=== PATIENT | male | born 1990 | race Two or more races ===

== ENCOUNTER 2019-11-26 01:51 | Inpatient (IN) | payer MEDICAID ==
[~2019-11-26] VITALS: Ht 177.8 cm; Wt 89.2 kg
--- NOTE | 2019-11-26 01:58 | NUR ---
PT BIB [facility] FROM [facility] FOR 2 WITNESSED SYNCOPAL EPISODES AND SEPSIS WORKUP. PT REPORTS TWO SYNCOPAL EPISODES THAT WOKE HIM UP AFTER. PT DENIES REPORTS 4/10 [place] AT THIS TIME, PT HAS SMALL HEMATOMA ON BACK OF HEAD, GROSS NEURO INTACT. STATES RECENTLY BEEN DIZZY UPON GETTING UP. PT REPORTS BEING A 12 PACK A DAY DRINKER. PT DENIES ABDOMINAL PAIN, DENIES BEING AROUND ANYONE WHO HAS BEEN SICK AT THIS TIME. PT GIVEN TOTAL OF 2L NS, 2G VANCO, 3.325 ZOSYN, 4 MG ZOFRAN AND 175 MCG [employer]M [employer]. PT RESTING ON [facility] PT PLACED ON SPO2/BP/ECG MONITORING . PT SINUS TACH ON MONITOR IN THE 110S-120S.
[2019-11-26] MEDS ORDERED: SERT25TA PO (02:09)
[2019-11-26] MEDS ORDERED: LISI2.5T PO (02:11)
[2019-11-26] MEDS ORDERED: LISI-167 PO (02:11)
--- NOTE | 2019-11-26 02:12 | NUR ---
CALLED FOR MEDICATION RECONCILLIATION. PT STATES " I ALSO TAKE SOMETHING FOR GERD BUT WE CANT FIND IT TO TELL YOU THE NAME. ITS A SMALL SQUARE PILL". LAW OLE[employer] AT FOR EVAL AND POC. WCTM.
[2019-11-26] MEDS ORDERED: SODIUM CHLORIDE 0.9% 1,000ML IVBOLUS ONE (02:30)
[2019-11-26 02:38] LABS: MEAN CORPUSCULAR HEMOGLOBIN 33.4 pg (27.5-34.5); MEAN CORPUSCULAR HGB CONC 32.8 g/dL (33.2-36.2); MEAN PLATELET VOLUME 9.1 fL (7.4-10.4); PLATELET COUNT 212 x10^3/uL (130-400); RED BLOOD COUNT 4.08 x10^6/uL (4.38-5.82); RED CELL DISTRIBUTION WIDTH 15.8 % (9.4-14.8)
[2019-11-26 02:49] LABS: ALANINE AMINOTRANSFERASE 101 U/L (12-78); ALBUMIN 3.1 g/dL (3.4-5.0); ANION GAP 7 mmol/L (5-15); CALCIUM 7.7 mg/dL (8.5-10.1); CHLORIDE 106 mmol/L (98-107); CREATININE 1.45 mg/dL (0.7-1.3)
[2019-11-26 02:51] LABS: ALKALINE PHOSPHATASE 148 U/L (45-117); BILIRUBIN,TOTAL 0.8 mg/dL (0.2-1.0); TOTAL PROTEIN 7.1 g/dL (6.4-8.2)
[2019-11-26 03:01] LABS: BASOPHILS # (AUTO) 0.03 x10^3/uL (0-0.1); BASOPHILS % (AUTO) 0 % (0-1); EOSINOPHILS # (AUTO) 0.26 x10^3/uL (0-0.4); EOSINOPHILS % (AUTO) 1 % (1-7); LYMPHOCYTES # (AUTO) 3.84 x10^3/uL (1-3.4); LYMPHOCYTES % (AUTO) 21 % (22-44); MD SCAN; MONOCYTES # (AUTO) 0.45 x10^3/uL (0.2-0.8); MONOCYTES % (AUTO) 3 % (2-9); NEUTROPHILS # (AUTO) 13.66 x10^3/uL (1.8-6.8); NEUTROPHILS % (AUTO) 75 % (42-75)
[2019-11-26 03:17] LABS: MICROSCOPIC NOT IND
--- NOTE | 2019-11-26 03:20 | NUR ---
late entry d/t pt care: pt ambulated to and from restroom with a smooth and steady gait, nad, lights dimmed for comfort. pt to be admitted. carol.
[2019-11-26] MEDS ORDERED: ONDANSETRON 2MG/ML, 2ML IVPush PRN (04:00)
[2019-11-26] MEDS ORDERED: PROMETHAZINE 25 MG/ML, 1ML IM PRN (04:00)
[2019-11-26] MEDS ORDERED: morphine SULFATE 10 MG/ML, 1ML IVPush PRN (04:00)
[2019-11-26] MEDS ORDERED: ONDANSETRON ODT 4 MG PO PRN (04:00)
[2019-11-26] MEDS ORDERED: hydrALAzine 20 MG/ML, 1ML IVPush PRN (04:00)
--- NOTE | 2019-11-26 04:15 | NUR ---
PT RESTING ON GURNEY, WATCHING TV, DENIES ADDITIONAL NEEDS AT THIS TIME, NAD, TO BE ADMITTED, WCTM.
[2019-11-26 04:28] LABS: FREE T4 (FREE THYROXINE) 1.28 ng/dL (0.76-1.46)
[2019-11-26] MEDS ORDERED: LORazepam 1MG TABLET PO PRN ×4 (04:30)
[2019-11-26] MEDS ORDERED: LORazepam 2 MG/ML, 1ML IV PRN ×5 (04:30)
[2019-11-26] MEDS ORDERED: LORazepam 0.5MG TABLET PO PRN (04:30)
[2019-11-26 05:11] VITALS: BP 111/67
[2019-11-26] MEDS: PANTOPRAZOLE 40 MG IV IVPush SCH ×2 (05:27→15:59)
[2019-11-26] MEDS: OXYcodone IR 5MG TABLET PO PRN ×2 (05:27→20:11)
[2019-11-26] MEDS: POTASSIUM CHLORIDE 20 MEQ, MAGNESIUM SULFATE 2 GM, THIAMINE 200 MG, MVI ADULT 10 ML, FO... IV SCH (05:58)
[2019-11-26 07:17] VITALS: BP 123/75
[2019-11-26 08:14] LABS: INTERNATIONAL NORMALIZED RATIO 1.06 (0.93-1.1); PROTHROMBIN TIME 10.9 Seconds (9.6-11.5)
[2019-11-26] MEDS: SERTRALINE 50MG TABLET PO SCH (08:56)
[2019-11-26] MEDS: CHLORDIAZEPOXIDE 25 MG CAPSULE PO SCH ×3 (09:21→20:11)
[2019-11-26] MEDS: ENOXAPARIN 40 MG/0.4 ML SQ SCH (09:22)
[2019-11-26] MEDS ORDERED: CALCIUM CARBONATE 500 MG TAB.CHEW PO PRN (09:30)
[2019-11-26] MEDS ORDERED: CALCIUM CARBONATE 500 MG TAB.CHEW ONE (09:30)
[2019-11-26 12:30] VITALS: BP 113/71
[2019-11-26 13:01] LABS: OCCULT BLOOD POSITIVE (NEGATIVE)
[2019-11-26 13:18] LABS: CLOSTRIDIUM DIFFICILE ANTIGEN NEGATIVE; CLOSTRIDIUM DIFFICILE TOXIN NEGATIVE (Negative)
[2019-11-26 19:12] VITALS: BP 99/68
[2019-11-27 01:35] VITALS: BP 111/73
[2019-11-27] MEDS: POTASSIUM CHLORIDE 20 MEQ, MAGNESIUM SULFATE 2 GM, THIAMINE 200 MG, MVI ADULT 10 ML, FO... IV SCH (03:53)
[2019-11-27] MEDS: PANTOPRAZOLE 40 MG IV IVPush SCH ×2 (04:00→16:00)
[2019-11-27 06:08] LABS: ALBUMIN 2.8 g/dL (3.4-5.0); ANION GAP 6 mmol/L (5-15); CALCIUM 8.3 mg/dL (8.5-10.1); CHLORIDE 108 mmol/L (98-107)
[2019-11-27 06:14] LABS: ALANINE AMINOTRANSFERASE 80 U/L (12-78); ALKALINE PHOSPHATASE 132 U/L (45-117); BILIRUBIN,TOTAL 0.9 mg/dL (0.2-1.0); CHOL/HDL RATIO 9.6; CHOLESTEROL, TOTAL 183 mg/dL (140-239); CREATININE 1.03 mg/dL (0.7-1.3); HDL CHOL % 10 % (26-37); HDL CHOLESTEROL (DIRECT) 19 mg/dL (40-60); LDL CHOLESTEROL,CALCULATED 97 mg/dL (54-169); LDL/HDL RATIO 5.1 (0.5-3.0); TOTAL PROTEIN 6.6 g/dL (6.4-8.2); TRIGLYCERIDES 333 mg/dL (50-200); VLDL CHOLESTEROL 67 mg/dL (0-25)
[2019-11-27 06:17] LABS: BASOPHILS # (AUTO) 0.05 x10^3/uL (0-0.1); BASOPHILS % (AUTO) 1 % (0-1); EOSINOPHILS % (AUTO) 4 % (1-7); LYMPHOCYTES # (AUTO) 2.56 x10^3/uL (1-3.4); LYMPHOCYTES % (AUTO) 25 % (22-44); MD NO; MEAN CORPUSCULAR HEMOGLOBIN 34.2 pg (27.5-34.5); MEAN CORPUSCULAR HGB CONC 33.6 g/dL (33.2-36.2); MEAN PLATELET VOLUME 9.4 fL (7.4-10.4); MONOCYTES # (AUTO) 0.45 x10^3/uL (0.2-0.8); MONOCYTES % (AUTO) 4 % (2-9); NEUTROPHILS # (AUTO) 6.92 x10^3/uL (1.8-6.8); NEUTROPHILS % (AUTO) 67 % (42-75); PLATELET COUNT 156 x10^3/uL (130-400); RED BLOOD COUNT 3.84 x10^6/uL (4.38-5.82); RED CELL DISTRIBUTION WIDTH 15.8 % (9.4-14.8)
[2019-11-27 07:40] VITALS: BP 101/67
[2019-11-27] MEDS: ENOXAPARIN 40 MG/0.4 ML SQ SCH (08:06)
[2019-11-27] MEDS: SERTRALINE 50MG TABLET PO SCH (08:07)
[2019-11-27] MEDS: CHLORDIAZEPOXIDE 25 MG CAPSULE PO SCH ×2 (08:07→16:00)
[2019-11-27 12:48] VITALS: BP 124/87
[2019-11-27] MEDS ORDERED: CHOL10003 PO (15:30)
[2019-11-27] MEDS ORDERED: THIA100T67 PO (15:30)
[2019-11-27] MEDS ORDERED: MULT-449 PO (15:30)
[2019-11-28] MEDS ORDERED: CHOLECALCIFEROL 1,000 UNIT TABLET PO SCH (09:00)
== END 2019-11-27 17:25 | disposition home or self-care (01) | DRG 280 ==
LOC: ED 03:58 → EDIP 04:09 → 5SO 05:19
PROVIDERS: ADMIT Internal Medicine; ATTEND Internal Medicine
DX: K70.10 Alcoholic hepatitis without ascites (principal); G90.8 Other disorders of autonomic nervous system; B19.10 Unspecified viral hepatitis B without hepatic coma; D72.823 Leukemoid reaction; E55.9 Vitamin D deficiency, unspecified; N17.0 Acute kidney failure with tubular necrosis; E78.1 Pure hyperglyceridemia; E86.0 Dehydration; F10.10 Alcohol abuse, uncomplicated; F17.210 Nicotine dependence, cigarettes, uncomplicated; K29.20 Alcoholic gastritis without bleeding; D72.829 Elevated white blood cell count, unspecified; F32.9 Major depressive disorder, single episode, unspecified; I10 Essential (primary) hypertension; I95.9 Hypotension, unspecified; R00.0 Tachycardia, unspecified
CPT/HCPCS: 36415; 80053; 80061; 81003; 82272; 82306; 82607; 83036; 83605; 83735; 84100; 84439; 84443; 85025; 85610; 86704; 86705; 86706; 86708; 86709; 86803; 87040; 87324; 87340; 93306; G0378; J1650; J2405; J3411; J3475; J3480; J7042; C9113; J7030